=== PATIENT | female | born 1930 | race Caucasian/White ===

== ENCOUNTER 2018-09-28 10:20 | Emergency (ER) | payer MEDICARE, BC ==
[2018-09-28] MEDS ORDERED: Sodium Chloride 0.9% 10 ML Syringe FLUSH PRN (12:11)
[2018-09-28] MEDS ORDERED: Labetalol 100 MG/20 ML MDV IVPUSH ONE (12:12)
[2018-09-28] MEDS ORDERED: Lisinopril 5 MG Tab PO ONE (12:12)
--- NOTE | 2018-09-28 12:13 | EDM.PDOC ---
ED HPI GENERAL MEDICAL PROBLEM - General Chief Complaint: Cardiovascular Problem Stated Complaint: HBP Time Seen by Provider: 09/28/18 12:14 Source of Information: Reports: Patient History Limitations: Reports: No Limitations - History of Present Illness INITIAL COMMENTS - FREE TEXT/NARRATIVE: pt has been lit headed for the past 2 days. She was at the hosp today and she was getting set for home o2 because her o2 sats drop. While she was being tested her bp was quite elevated and did not go down with rest. Onset: Other (pt has been liteheaded. ) Duration: Hour(s): Location: Reports: Head, Chest Associated Symptoms: Reports: Other (pt has been liteheaded. ) headache Pain Score (Numeric/FACES): 3 - Related Data Allergies Allergy/AdvReac Type Severity Reaction Status Date / Time No Known Allergies Allergy Verified 09/28/18 10:43 Home Meds: Home Meds Aspirin [Adult Low Dose Aspirin EC] 81 mg PO DAILY 09/28/18 [History] Calcium Carbonate/Vitamin D3 [Oyster Shell 500-Vit D3 200 Tb] 1 tab PO BID 09/28 [History] Levothyroxine [Synthroid] 88 mcg PO ACBREAKFAST 09/28/18 [History] Lisinopril 1 tab PO DAILY 09/28/18 [History] Metoprolol Tartrate [Lopressor] 50 mg PO BID 09/28/18 [History] Multivitamin [Multi-Vitamin Daily] 1 tab PO DAILY 09/28/18 [History] Mv-Mn/FA/Vit K/Lycop/Lut/Zeaxa [Ocuvite Eye + Multi Tablet] 1 tab PO DAILY 09/28 [History] Omeprazole 1 tab PO DAILY 09/28/18 [History] Simvastatin [Zocor] 1 tab PO DAILY 09/28/18 [History] Triamcinolone Acetonide [Kenalog 0.1% Crm] 0 gm TOP ASDIRECTED PRN 09/28/18 [ History] Past Medical History HEENT History: Reports: Hard of Hearing, Impaired Vision Cardiovascular History: Reports: High Cholesterol, Hypertension, [place] Respiratory History: Reports: Other (See Below) Other Respiratory History: abnormal PFT,s dyspnea on exhertion Genitourinary History: Reports: Renal Disease, Other (See Below) Other Genitourinary History: kidney disease stage 5 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: Musculoskeletal History: Reports: Osteoarthritis, Other (See Below) Other Musculoskeletal History: osteopenia Endocrine/Metabolic History: Reports: Hypothyroidism Hematologic History: Reports: Other (See Below) Other Hematologic History: serum calcium elivated Oncologic (Cancer) History: Reports: Squamous Cell Carcinoma - Infectious Disease History Infectious Disease History: Reports: Mumps - Past Surgical History HEENT Surgical History: Reports: Cataract Surgery GI Surgical History: Reports: Colostomy Dermatological Surgical History: Reports: Skin Biopsy Social & Family History - Tobacco Use Smoking Status *Q: Former Smoker Years of Tobacco use: 40 Packs/Tins Daily: 0.2 Used Tobacco, but Quit: Yes Month/Year Tobacco Last Used: July 1981 Second Hand Smoke Exposure: No - Caffeine Use Caffeine Use: Reports: Coffee, Tea - Alcohol Use Days Per Week of Alcohol Use: 0 - Recreational Drug Use Recreational Drug Use: No ED ROS GENERAL - Review of Systems Review Of Systems: See Below Constitutional: Reports: No Symptoms HEENT: Reports: No Symptoms, Other (pt has had some clear discharge nasally. ) Respiratory: Reports: No Symptoms Cardiovascular: Reports: Blood Pressure Problem Endocrine: Reports: No Symptoms GI/Abdominal: Reports: No Symptoms : Reports: No Symptoms Musculoskeletal: Reports: No Symptoms Skin: Reports: No Symptoms Neurological: Reports: Dizziness Psychiatric: Reports: No Symptoms ED EXAM, GENERAL - Physical Exam Exam: See Below Free Text/Narrative:: pt is a pleasant appearing 88 year old who has a elevated bp. She has been slightly lite headed in the past fwew days. She was set up for a home o2 set up and she wass cleared for that in that her o2 sats drop when she walks around. While she was being tested her bp was very high and did not go down with rest. Exam Limited By: No Limitations General Appearance: Alert, Anxious, Mild Distress, Other (pupils are equal and reactive. ) Ears: Normal TMs Nose: Normal Inspection Throat/Mouth: Normal Inspection Head: Atraumatic Neck: Normal Inspection Respiratory/Chest: No Respiratory Distress Cardiovascular: Other ( bp is elevaTED. ) GI/Abdominal: Soft, Non-Tender (Female) Exam: Deferred Rectal (Female) Exam: Deferred Back Exam: Normal Inspection Extremities: Normal Inspection Neurological: Alert, Oriented, Normal Cognition Psychiatric: Anxious Course - Vital Signs Last Recorded V/S: Last Vital Signs Temp 35.5 C 09/28/18 11:07 Pulse 52 L 09/28/18 11:07 Resp 16 09/28/18 11:07 BP 190/88 H 09/28/18 12:20 Pulse Ox 96 09/28/18 11:07 - Orders/Labs/Meds Orders: Active Orders 24 hr Category Date Time Status UA W/MICROSCOPIC [URIN] Urgent Lab 09/28/18 12:42 Ordered Sodium Chloride 0.9% [Saline Flush] Med 09/28/18 12:11 Active 10 ml FLUSH ASDIRECTED PRN Saline Lock Insert [OM.PC] Routine Oth 09/28/18 12:11 Ordered Medication Orders Sodium Chloride (Saline Flush) 10 ml FLUSH ASDIRECTED PRN PRN Reason: Keep Vein Open Last Admin: 09/28/18 12:37 Dose: 10 ml Labs: Laboratory Tests 09/28/18 09/28/18 Range/Units 13:00 13:00 WBC 11.5 H (4.5-11.0) K/uL RBC 4.19 (3.30-5.50) M/uL Hgb 14.2 (12.0-15.0) g/dL Hct 42.3 (36.0-48.0) % MCV 101 H (80-98) fL MCH 34 H (27-31) pg MCHC 34 (32-36) % Plt Count 229 (150-400) K/uL Neut % (Auto) 51 (36-66) % Lymph % (Auto) 30 (24-44) % [place] % (Auto) 10 H (2-6) % Eos % (Auto) 7 H (2-4) % Baso % (Auto) 2 H (0-1) % Sodium 143 (140-148) mmol/L Potassium 4.0 (3.6-5.2) mmol/L Chloride 106 (100-108) mmol/L Carbon Dioxide 29 (21-32) mmol/L Anion Gap 8.1 (5.0-14.0) mmol/L BUN 18 (7-18) mg/dL Creatinine 1.3 H (0.6-1.0) mg/dL Est Cr Clr Drug Dosing 25.33 mL/min Estimated GFR (MDRD) 39 L (>60) Glucose 134 H (74-106) mg/dL Calcium 9.4 (8.5-10.1) mg/dL Total Bilirubin 0.5 (0.2-1.0) mg/dL AST 27 (15-37) U/L ALT 16 (12-78) U/L Alkaline Phosphatase 68 (46-116) U/L Total Protein 7.4 (6.4-8.2) g/dL Albumin 3.7 (3.4-5.0) g/dL Globulin 3.7 H (2.3-3.5) g/dL Albumin/Globulin Ratio 1.0 L (1.2-2.2) Meds: Medications Generic Name Dose Route Start Last Admin Trade Name Freq PRN Reason Stop Dose Admin Sodium Chloride 10 ml 09/28/18 12:11 09/28/18 12:37 Saline Flush FLUSH 10 ml ASDIRECTED PRN Administration Keep Vein Open Discontinued Medications Generic Name Dose Route Start Last Admin Trade Name Freq PRN Reason Stop Dose Admin Labetalol HCl 20 mg 09/28/18 12:30 09/28/18 12:32 Normodyne IVPUSH 09/28/18 12:31 20 mg ONETIME ONE Administration Protocol Lisinopril 5 mg 09/28/18 12:12 09/28/18 12:20 Prinivil PO 09/28/18 12:13 5 mg ONETIME ONE Administration - Re-Assessments/Exams Free Text/Narrative Re-Assessment/Exam: 09/28/18 13:31 PT WAS GIVEN LISINOPRIL 5 MG PO AND LABATOL 20MG IV. hER BP DID COME DOWN AND STAYED DOWN. Departure - Departure Time of Disposition: 13:32 Disposition: Home, Self-Care 01 Condition: Fair Clinical Impression: Hypertension, Low O2 saturation Referrals: Basilia Coello PA [Primary Care Provider] - Forms: ED Department Discharge Care Plan Goals: PROCEED WITH GETTING THE HOME O2, INCREASE LISINOPRIL TO 20 MG QAM AND 10 MG IN THE AFTERNOON--1/2 TAB FOLLOW UP WITH REGULAR dRChon - My Orders Last 24 Hours: My Active Orders 09/28/18 12:11 Sodium Chloride 0.9% [Saline Flush] 10 ml FLUSH ASDIRECTED PRN Saline Lock Insert [OM.PC] Routine 09/28/18 12:42 UA W/MICROSCOPIC [URIN] Urgent - Assessment/Plan Last 24 Hours: My Active Orders 09/28/18 12:11 Sodium Chloride 0.9% [Saline Flush] 10 ml FLUSH ASDIRECTED PRN Saline Lock Insert [OM.PC] Routine 09/28/18 12:42 UA W/MICROSCOPIC [URIN] Urgent
[2018-09-28] MEDS ORDERED: Labetalol 20 MG/4 ML Syringe IVPUSH ONE (12:30)
[2018-09-28] MEDS ORDERED: Acetaminophen 325 MG Tab PO ONE (13:34)
== END 2018-09-28 14:13 | disposition home or self-care (01) ==
LOC: JP.ED 10:20
DX: I12.0 Hypertensive chronic kidney disease with stage 5 chronic kidney disease or end stage renal disease (principal); N18.5 Chronic kidney disease, stage 5; R09.02 Hypoxemia; E78.00 Pure hypercholesterolemia, unspecified; I25.2 Old myocardial infarction; E03.9 Hypothyroidism, unspecified; Z79.82 Long term (current) use of aspirin; Z79.899 Other long term (current) drug therapy; Z87.891 Personal history of nicotine dependence
CPT/HCPCS: 36415; 80053; 85025; 96374; 99283; A9270; J3490